=== PATIENT | male | born 1990 | race Caucasian/White ===

== ENCOUNTER 2020-08-19 07:38 | Emergency (ER) | payer OTHER ==
[~2020-08-19] VITALS: Ht 172.7 cm; Wt 90.7 kg
[2020-08-19] MEDS ORDERED: CLARITIN10 M1 PO (11:18)
[2020-08-19] MEDS ORDERED: FLUCONAZOLE150 MG PO (11:18)
[2020-08-19] MEDS ORDERED: NIZORAL SHAMPO120 ML TOP (11:18)
[2020-08-19] MEDS ORDERED: BENADRYL25 MG PO (11:18)
== END 2020-08-19 11:25 | disposition home or self-care (01) ==
LOC: ER 07:38
DX: R21 Rash and other nonspecific skin eruption (principal); T78.49XA Other allergy, initial encounter; X58.XXXA Exposure to other specified factors, initial encounter

== ENCOUNTER 2020-12-31 13:19 | Emergency (ER) | payer OTHER ==
[~2020-12-31] VITALS: Ht 172.7 cm; Wt 89.8 kg
[~2020-12-31 13:19] MED LIST: BENADRYL25 MG PO; CLARITIN10 M1 PO; FLUCONAZOLE150 MG PO; NIZORAL SHAMPO120 ML TOP
[2020-12-31] MEDS ORDERED: NORFLEX100MG PO (16:31)
[2020-12-31] MEDS ORDERED: KETO10TA2 PO (16:31)
== END 2020-12-31 17:06 | disposition home or self-care (01) ==
LOC: ER
DX: S33.5XXA Sprain of ligaments of lumbar spine, initial encounter (principal); X50.0XXA Overexertion from strenuous movement or load, initial encounter; Y93.89 Activity, other specified; Y92.69 Other specified industrial and construction area as the place of occurrence of the external cause; Y99.8 Other external cause status

== ENCOUNTER 2022-06-30 15:47 | Emergency (ER) | payer OTHER ==
[~2022-06-30] VITALS: Ht 172.7 cm; Wt 99.8 kg
[~2022-06-30 15:47] MED LIST changes: +KETO10TA2 PO; +NORFLEX100MG PO
== END 2022-06-30 19:39 | disposition home or self-care (01) ==
LOC: ER 15:47
DX: S93.402A Sprain of unspecified ligament of left ankle, initial encounter (principal); X37.1XXA Tornado, initial encounter; Y93.9 Activity, unspecified; Y92.9 Unspecified place or not applicable

== ENCOUNTER 2023-08-03 08:52 | Emergency (ER) | payer OTHER ==
[~2023-08-03] VITALS: Ht 172.7 cm; Wt 98.9 kg
[2023-08-03 10:27] LABS: URINE RBC 2.2 uL (0.0-20.8)
[2023-08-03 10:57] LABS: URINE APPEARANCE Clear; URINE BILIRRUBIN Negative (NEGATIVE); URINE BLOOD Negative; URINE COLOR Yellow; URINE GLUCOSE Negative (NEGATIVE); URINE LEUKOCYTE Negative; URINE NITRATE Negative; URINE PROTEIN Negative (NEGATIVE); URINE UROBILINOGEN 0.2 E.U./dl
[2023-08-03 11:08] LABS: URINE BACTERIA 1.2 uL (0.0-1933)
== END 2023-08-03 11:54 | disposition home or self-care (01) ==
LOC: ER 08:52
PROVIDERS: Emergency Medicine
DX: R10.9 Unspecified abdominal pain (principal)

== ENCOUNTER 2024-01-09 09:10 | Emergency (ER) | payer OTHER ==
[~2024-01-09] VITALS: Ht 172.7 cm; Wt 94.3 kg
[2024-01-09] MEDS ORDERED: KETOROLAC TROMETHAMINE 60 MG VIAL IM ONE ×2 (12:00→12:35)
[2024-01-09] MEDS ORDERED: NAPROXEN500 MG PO (17:13)
== END 2024-01-09 17:33 | disposition home or self-care (01) ==
LOC: ER 09:12
DX: R68.84 Jaw pain (principal)
CPT/HCPCS: 70110; 96372; 99283; J1885